=== PATIENT | male | born 1990 | race Caucasian/White ===

== ENCOUNTER 2019-06-07 11:25 | Emergency (ER) | payer OTHER ==
[~2019-06-07] VITALS: Ht 180.3 cm; Wt 62.1 kg
[2019-06-07] MEDS ORDERED: IBUPROFEN 600600 M1 PO (11:35)
[2019-06-07] MEDS ORDERED: ACETAMINOPHEN-1 EAC1 PO (11:35)
[2019-06-07] MEDS ORDERED: KEFLEX500 M1 PO (11:35)
[2019-06-07 12:29] VITALS: BP 112/76
== END 2019-06-07 12:29 | disposition home or self-care (01) ==
LOC: M.ERS 11:25
DX: S61.411A Laceration without foreign body of right hand, initial encounter (principal); S61.215A Laceration without foreign body of left ring finger without damage to nail, initial encounter; S61.213A Laceration without foreign body of left middle finger without damage to nail, initial encounter; W45.8XXA Other foreign body or object entering through skin, initial encounter; Y93.89 Activity, other specified; Y92.89 Other specified places as the place of occurrence of the external cause; Y99.8 Other external cause status